=== PATIENT | male | born 1970 | race Caucasian/White ===

== ENCOUNTER 2018-10-31 12:58 | Emergency (ER) | payer OTHER ==
[2018-10-31 13:22] LABS: PTT 30.9 SEC (22.9-36.1); Prothrombin Time 12.9 SEC (12.0-14.7)
[2018-10-31] MEDS ORDERED: CEFAZOLIN 1 GM VIAL ONE (13:24)
[2018-10-31] MEDS ORDERED: Adacel (T-DAP) 0.5 ML SYRINGE ONE (13:24)
[2018-10-31] MEDS ORDERED: Morphine 4 MG/ML VIAL ONE (13:24)
[2018-10-31 13:27] LABS: Anion Gap 13 mmol/L (10-20); BUN (Urea Nitrogen) 20 mg/dL (8.9-20.6); Calc. Creatinine Clearance 0 mL/min (70-130); Calcium 10.1 mg/dL (7.8-10.44); Carbon Dioxide 25 mmol/L (22-29); Chloride 103 mmol/L (98-107); Estimated GFR-MDRD 70; Glucose 88 mg/dL (70-105); Potassium 4.4 mmol/L (3.5-5.1); Sodium 137 mmol/L (136-145)
[2018-10-31 13:32] LABS: Hemoglobin 14.6 g/dL (14.0-18.0); Lymphocytes 38 % (21-51); MDiff Complete? YES; Mean Corpuscular HGB CONC 33.4 g/dL (32.0-36.0); Mean Corpuscular Hemoglobin 31.7 pg (27.0-31.0); Monocytes 6 % (0-10); Neutrophil 56 % (42-75); Platelet Count 195 thou/uL (130-400); RBC Distribution Width 11.1 % (11.5-14.5); White Blood Cell (WBC) Count 5.3 thou/uL (4.8-10.8)
--- NOTE | 2018-10-31 13:37 | CT ---
CT FACIAL BONES: Date: 10/31/18 A nail protrudes from the right side of the patient's face. It impales the upper part of the right bu ccinator muscle, but does not go any deeper than the mandible itself. No mandibular fractures were se en. The nail misses the parotid gland and does not transgress the infratemporal fossa. No significant hemorrhage noted. The visible portions of the brain are unremarkable. Other than some minor mucosal thickening in the f mica of the right maxillary sinus, the paranasal sinuses are clear. IMPRESSION: Foreign object (nail) impaled in the upper part of the right buccinator muscle, but no deeper. No oth er structures of concern seem to be involved. Findings discussed with Dr. Pratt at 1321 hours on 10/31/18. CODE CR. POS: HOME
[2018-10-31] MEDS ORDERED: Sodium Chloride 0.9% 0 ML ONE (13:45)
== END 2018-10-31 14:05 | disposition home or self-care (01) ==
LOC: BURERS 12:58
DX: S00.85XA Superficial foreign body of other part of head, initial encounter (principal); W26.8XXA Contact with other sharp object(s), not elsewhere classified, initial encounter
CPT/HCPCS: 70486; 80048; 85025; 85610; 85730; 90471; 90715; 96374; 96375; G0390; J0690; J2270; J3490